=== PATIENT | female | born 1965 | race Caucasian/White ===

== ENCOUNTER 2021-05-03 11:26 | Emergency (ER) | payer BC ==
[2021-05-03] MEDS ORDERED: Acetaminophen/HYDROcodone 325-5 MG Tab PO ONE ×2 (12:24)
[2021-05-03] MEDS ORDERED: Lidocaine 2% Viscous Solution 100 ML Bottle PO ONE (12:24)
[2021-05-03] MEDS ORDERED: Ketorolac 30 MG/ML SDV IM STA (12:24)
[2021-05-03] MEDS ORDERED: Lidocaine 2% Viscous Solution 15 ML UD ONE (12:37)
--- NOTE | 2021-05-03 12:57 | EDM.PDOC ---
ED HPI GENERAL MEDICAL PROBLEM - General Chief Complaint: ENT Problem Stated Complaint: PAIN FROM INFECTION GETTING WORSE Time Seen by Provider: 05/03/21 11:52 - History of Present Illness INITIAL COMMENTS - FREE TEXT/NARRATIVE: CHIEF COMPLAINT(S): Dental pain HISTORY OF PRESENT ILLNESS: This is a 55-year-old woman with a recent diagnosis of left upper wisdom tooth dental abscess who is on antibiotics who comes to the emergency department with a chief complaint of dental pain. The patient states that she has been on antibiotics for a couple of days however the pain has continued and she feels like it spreading onto her cheek and is concerned that she may have a worsening infection. She states that she is already on Augmentin and has been using gabapentin for the pain however the gabapentin does not seem to be working. She denies any stridor, drooling or trismus. She denies any blurry vision, double vision or loss of vision. She denies any ear pain. She states the pain is mainly located in the left upper and left jaw area. She states that she feels like the left side of her face is swelling. She currently rates her pain as 5 out of 10. She states that she has tried Excedrin and ibuprofen which did not help and she feels like she cannot sleep secondary to the pain. REVIEW OF SYSTEMS: Constitutional: Denies fever, chills. Eyes: Denies eye pain Ears, Nose, Mouth, & Throat: Positive for left jaw and left tooth pain. Denies earache, stridor, drooling, trismus Cardiovascular: Denies chest pain Respiratory: Denies shortness of breath Neurological: Denies blurred vision, numbness, tingling, weakness PAST MEDICAL HISTORY: As per history of present illness and as reviewed below otherwise noncontributory. SURGICAL HISTORY: As per history of present illness and as reviewed below otherwise noncontributory. SOCIAL HISTORY: As per history of present illness and as reviewed below otherwise noncontributory. FAMILY HISTORY: As per history of present illness and as reviewed below otherwise noncontributory. EXAMINATION OF ORGAN SYSTEMS/BODY AREAS: Constitutional: Blood pressure is 125/75, heart rate 82, respiratory rate 17 with an oxygen saturation 97% on room air. Temperature 36.7 General: Well-appearing woman who is in no acute distress Psychiatric: Appropriate mood and affect. Eyes: No scleral icterus or conjunctival erythema pupils are equal round and reactive to light ENMT: Moist mucous membranes. No pharyngeal erythema no stridor, drooling, trismus. There is evidence of a dental carry in the patient's left wisdom tooth. There is no evidence of periapical abscess or erythema. There is no jaw swelling or facial swelling. Cardiovascular: Regular, rate, and rhythm. No gallops, murmurs, or rubs. Respiratory: Lungs clear to auscultation bilaterally. No wheezes, rales, or rhonchi. Skin: No lesions or abrasions. Neurological: Alert, GCS 15 MEDICAL DECISION MAKING AND COURSE IN THE ED WITH INTERPRETATION/REVIEW OF DIAGNOSTIC STUDIES: This is a 55-year-old woman with a known dental infection in her wisdom tooth who comes to the emergency department with continued pain and concern for facial swelling and left jaw pain. At this time the patient does not have any evidence of airway compromise, stridor, drooling or trismus. There is no obvious abnormality other than the dental carry. At this time I did offer the patient a dental block however the patient did not want to the dental block. At this time we will provide the patient with viscous lidocaine soaked cotton balls and provide the patient with Toradol and a [place] tablet. I did discuss with her that she should continue with the antibiotics at home and I did prescribe her with [place] for severe pain. She did express understanding was given strict return precautions and had no further questions. DISPOSITION: The patient was discharged home in stable condition. The patient will follow up with dentist as soon as possible CONDITION: Fair PROCEDURES: None FINAL IMPRESSION(S)/DIAGNOSES: 1. Acute dental pain possibly secondary to dental abscess/yossi Alistair Borwn M.D. left side dental pain Pain Score (Numeric/FACES): 5 - Related Data Allergies Allergy/AdvReac Type Severity Reaction Status Date / Time No Known Allergies Allergy Verified 05/03/21 11:48 Home Meds: Home Meds Amoxicillin/Clavulanate K [Augmentin 875-125 MG] 1 tab PO BID 05/03/21 [History] Amoxicillin/Potassium Clav [Amox Tr-K Clv 875-125 mg Tab] 1 each PO BID #3 tablet 05/03/21 [Rx] Gabapentin [Neurontin] 100 mg PO ASDIRECTED 05/03/21 [History] Hydrocodone/Acetaminophen [HYDROcodone-Acetaminophen 5-325 MG] 1 each PO Q6H PRN #10 tab 05/03/21 [Rx] Naloxone HCl [Narcan] 4 mg NS ONETIME #1 spray 05/03/21 [Rx] Past Medical History - Infectious Disease History Infectious Disease History: Reports: Chicken Pox, Novel Coronavirus - Past Surgical History Female Surgical History: Reports: Section Dermatological Surgical History: Reports: Skin Biopsy Social & Family History - Family History Family Medical History: No Pertinent Family History - Tobacco Use Tobacco Use Status *Q: Never Tobacco User - Caffeine Use Caffeine Use: Reports: Soda - Recreational Drug Use Recreational Drug Use: No ED ROS GENERAL - Review of Systems Review Of Systems: See Below ED EXAM, GENERAL - Physical Exam Exam: See Below Course - Vital Signs Last Recorded V/S: Last Vital Signs Temp 36.7 C 05/03/21 11:49 Pulse 74 05/03/21 13:08 Resp 17 05/03/21 11:49 BP 119/71 05/03/21 13:08 Pulse Ox 98 05/03/21 13:08 - Orders/Labs/Meds Meds: Medications Discontinued Medications Generic Name Dose Route Start Last Admin Trade Name Freq PRN Reason Stop Dose Admin Hydrocodone Bitart/Acetaminophen 1 tab 05/03/21 12:24 05/03/21 12:41 Acetaminophen/Hydrocodone 325-5 Mg Tab PO 05/03/21 12:25 1 tab ONETIME ONE Administration Hydrocodone Bitart/Acetaminophen 1 tab 05/03/21 12:24 05/03/21 12:42 Acetaminophen/Hydrocodone 325-5 Mg Tab PO 05/03/21 12:25 1 tab ONETIME ONE Administration Ketorolac Tromethamine 30 mg 05/03/21 12:24 05/03/21 12:43 Ketorolac 30 Mg/Ml Sdv IM 05/03/21 12:25 30 mg ONETIME STA Administration Lidocaine HCl 20 ml 05/03/21 12:24 05/03/21 12:44 Lidocaine 2% Viscous Solution 100 Ml Bottle PO 05/03/21 12:25 20 ml ONETIME ONE Administration Lidocaine HCl Confirm 05/03/21 12:37 05/03/21 12:46 Lidocaine 2% Viscous Solution 15 Ml Cup Administered 05/03/21 12:38 Not Given Dose 30 ml .ROUTE .STK-MED ONE Departure - Departure Time of Disposition: 12:57 Disposition: Home, Self-Care 01 Condition: Fair Clinical Impression: Dental caries, Dental abscess - Discharge Information *PRESCRIPTION DRUG MONITORING PROGRAM REVIEWED*: No *COPY OF PRESCRIPTION DRUG MONITORING REPORT IN PATIENT ERASMO: No Prescriptions: Amoxicillin/Potassium Clav [Amox Tr-K Clv 875-125 mg Tab] 1 each PO BID #3 tablet Hydrocodone/Acetaminophen [HYDROcodone-Acetaminophen 5-325 MG] 1 each PO Q6H PRN #10 tab PRN Reason: Pain (Severe 7-10) Naloxone HCl [Narcan] 4 mg NS ONETIME #1 spray Instructions: Dental Abscess, [id number], Dental Caries, Adult, [id number] Referrals: Georgie Mclean DO [Primary Care Provider] - Forms: ED Department Discharge Additional Instructions: You were evaluated today on an emergent basis. At this time I strongly recommend that she follow-up with a dentist for definitive management. In the meantime I would like you to follow the pain regimen as below. Please use: Tylenol 500mg every 6 hours (DO NOT TAKE MORE THAN 4000mg in 1 day) *Remember that NORCO HAS TYLENOL IN IT Ibuprofen 400mg every 6 hours (Take with food as it can cause ulcers, GI upset) Example schedule: 8:00 AM (Tylenol 500mg) 11:00 AM (Ibuprofen 400mg) 2:00 PM (Tylenol 500mg) 5:00 PM (Ibuprofen 400mg) You may use [place] 1 tablet every 6 hours as needed for severe pain. Please stop taking gabapentin as this is not helping your symptoms. Return to the emergency department if you are having difficulty opening your mouth fully, drooling, have voice changes or you feel like things are not improving. [facility] [address] [place] [address] [id number] [address] [id number] The patient is informed of any results of their evaluation and diagnostic workup and all questions are answered. They are given discharge instructions and return precautions. The patient is stable for discharge. The patient states they understand and agree with the plan and that they will return if their symptoms get worse or if they have any new concerns. The following information is given to patients seen in the emergency department who are being discharged to home. This information is to outline your options for follow-up care. We provide all patients seen in our emergency department with a follow-up referral. The need for follow-up, as well as the timing and circumstances, are variable depending upon the specifics of your emergency department visit. If you don't have a primary care physician on staff, we will provide you with a referral. We always advise you to contact your personal physician following an emergency department visit to inform them of the circumstance of the visit and for follow-up with them and/or the need for any referrals to a consulting specialist. The emergency department will also refer you to a specialist when appropriate. This referral assures that you have the opportunity for follow-up care with a specialist. All of these measure are taken in an effort to provide you with optimal care, which includes your follow-up. Under all circumstances we always encourage you to contact your private physician who remains a resource for coordinating your care. When calling for follow-up care, please make the office aware that this follow-up is from your recent emergency room visit. If for any reason you are refused follow-up, please contact the [facility] Emergency Department at and asked to speak to the emergency department charge nurse.
== END 2021-05-03 13:08 | disposition home or self-care (01) ==
LOC: MW.ED 11:26
DX: K04.7 Periapical abscess without sinus (principal); K02.9 Dental caries, unspecified
CPT/HCPCS: 96372; 99282; A9270; J1885